=== PATIENT | female | born 1965 | race African-American/Black ===

== ENCOUNTER 2016-10-09 20:09 | Emergency (ER) | payer BC ==
[~2016-10-09] VITALS: Ht 162.6 cm; Wt 73.5 kg
[~2016-10-09 20:09] MED LIST: AMLO-147 PO; AMLO-218 PO; CIPR500T4 PO; IBUP-1542 PO; LISI-329 PO; METR500T PO; ONDA4TAB35 PO; ULT50 PO
[2016-10-09 20:10] VITALS: Ht 162.6 cm; Wt 73.5 kg
[2016-10-09] MEDS ORDERED: SOD CHLORIDE 0.9% 1,000 ML IV STA (20:53)
[2016-10-09] MEDS ORDERED: DICLOFENAC SODIUM 37.5 MG/ML VIAL IV STA (20:53)
[2016-10-09 21:17] LABS: ADD UMIC YES; URINE BILIRUBIN (Dip) NEGATIVE (NEGATIVE); URINE BLOOD (Dip) TRACE (NEGATIVE); URINE COLOR LT. YELLOW (YELLOW); URINE GLUCOSE (Dip) NEGATIVE (NEGATIVE); URINE KETONES (Dip) NEGATIVE (NEGATIVE); URINE LEUKOCYTE ESTERASE (Dip) NEGATIVE (NEGATIVE); URINE NITRITE (Dip) NEGATIVE (NEGATIVE); URINE TOTAL PROTEIN (Dip) TRACE (NEGATIVE); URINE UROBILINOGEN (Dip) 0.2 E.U./dL (0.1-1.0)
[2016-10-09 21:27] LABS: ALBUMIN 4.1 g/dl (3.3-4.9)
[2016-10-09 21:30] LABS: ALBUMIN/GLOBULIN RATIO 1.17; BILIRUBIN,INDIRECT 0.2 mg/dl (0-1.1); BILIRUBIN,TOTAL 0.2 mg/dl (0.2-1.3); CREATININE 0.94 mg/dl (0.44-1.00); TOTAL PROTEIN 7.6 g/dl (6.1-8.1)
[2016-10-09 21:31] LABS: BASOPHILS % 0.4 % (0.0-2.0); CALCIUM 8.9 mg/dl (8.4-10.2); EOSINOPHILS # 0.1 10^3/ul (0.0-0.5); EOSINOPHILS % 0.8 % (0.0-7.0); HEMOGLOBIN 11.4 g/dl (12.0-16.0); LYMPHOCYTES # 1.4 10^3/ul (0.8-2.9); LYMPHOCYTES % 18.8 % (15.0-51.0); MEAN CORPUSCULAR HEMOGLOBIN 27.6 pg (29.0-33.0); MEAN CORPUSCULAR HGB CONC 32.6 g/dl (32.0-37.0); MEAN CORPUSCULAR VOLUME 84.6 fl (82.0-101.0); MEAN PLATELET VOLUME 8.4 fl (7.4-10.4); MONOCYTE # 0.4 10^3/ul (0.3-0.9); MONOCYTES % 5.6 % (0.0-11.0); NEUTROPHIL # 5.6 10^3/ul (1.6-7.5); NEUTROPHILS % 74.4 % (39.0-77.0); PLATELET COUNT 300 10^3/UL (140-440); RED BLOOD COUNT 4.13 10^6/ul (4.20-5.40); RED CELL DISTRIBUTION WIDTH 16.5 % (11.5-14.5); UNCORRECTED WBC 7.6 10^3/ul (4.8-10.8); WHITE BLOOD COUNT 7.6 10^3/ul (4.8-10.8)
[2016-10-09 21:36] LABS: BACTERIA,URINE FEW; SQUAMOUS EPITHELIAL CELL,UR FEW
[2016-10-09 21:38] LABS: CONDITION 1; LH ANALYZER COMMENTS 1
--- NOTE | 2016-10-09 21:45 | RADRPT ---
PROCEDURE: CT Abdomen and Pelvis without contrast CLINICAL INDICATION: Left lower quadrant abdominal pain TECHNIQUE: Transaxial images were obtained through the abdomen and pelvis on a multi-slice scanner without the intravenous contrast administration. Sagittal and coronal re-formations were subsequent ly reconstructed. One or more of the following dose reduction techniques were used: - Automated exposure control. - Adjustment of the mA and/or kV according to patient size. - Use of iterative reconstruction technique. Radiation dose: CTDIvol = 10.86 mGy; DLP = 612.67 mGy-cm. COMPARISON: No prior studies are available for comparison. FINDINGS: Lung bases: The visualized lung bases appear unremarkable. Liver: The liver is borderline enlarged but no focal lesion is identified. Gallbladder: The wall is not thickened. No radiopaque stones are identified. Bile ducts: The intra and extrahepatic bile ducts are normal in caliber. Pancreas: Appears normal with no mass or inflammation evident. Spleen: Normal in size with no focal lesion. Adrenals: Normal with no mass identified. Kidneys, ureters and bladder: The kidneys are normal in size and there is no mass, pathological calc ification, or hydronephrosis evident. There is no perinephric stranding. The ureters are normal in c aliber and no ureteroliths are identified. The bladder appears unremarkable. Reproductive organs: The uterus is prominent, anteflexed, and is midline. A 2.2 cm subserosal fibroi d extends inferiorly off the left uterine fundus. No adnexal masses evident. Phleboliths are seen in the pelvis. Stomach and bowel: There are scattered diverticuli within the colon but there is no evidence of nori l obstruction or inflammation. There is a small focal area of dense substance seen within the ascen ding colon which is probably ingested material. The stomach appears unremarkable. Appendix: There are no findings to suggest appendicitis. Peritoneum: No free intraperitoneal fluid or air is identified. Aorta: There is mild atherosclerotic vascular calcification but no abdominal aortic aneurysm is evid ent. IVC: Unremarkable. Lymph nodes: Small shoddy retroperitoneal nodes are evident. Osseous structures: Very mild degenerative endplate changes are seen to the spine. IMPRESSION: 1. The liver is borderline enlarged with no focal lesion. 2. Scattered diverticuli are seen in the colon and there is abundant stool. There is no evidence o f bowel obstruction or inflammation. 3. No evidence of urinary outflow obstruction or ureterolithiasis. 4. Prominent anteflexed uterus. 2.2 cm subserosal fibroid extends inferiorly off the left uterine f undus. 5. Mild atherosclerotic vascular calcification. Physician Kristy Date Time Electronically viewed and signed by Luz Maria Goode Physician on 10/09/2016 21:45 RH/
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
[2016-10-09] MEDS ORDERED: IBUP800T25 PO (21:57)
[2016-10-09] MEDS ORDERED: POLY17PO6 PO (21:57)
[2016-10-09] MEDS ORDERED: DOCU-144 PO (21:57)
[2016-10-09 22:35] VITALS: BP 168/98; PULSE 76; RESP 18; TEMP 98.3
== END 2016-10-09 23:39 | disposition home or self-care (01) ==
LOC: E/R 20:09
DX: R10.32 Left lower quadrant pain (principal); R40.2252 Coma scale, best verbal response, oriented, at arrival to emergency department; K59.00 Constipation, unspecified; D25.9 Leiomyoma of uterus, unspecified; D64.9 Anemia, unspecified; F17.200 Nicotine dependence, unspecified, uncomplicated; R40.2362 Coma scale, best motor response, obeys commands, at arrival to emergency department; R40.2142 Coma scale, eyes open, spontaneous, at arrival to emergency department; I10 Essential (primary) hypertension; Z71.6 Tobacco abuse counseling
CPT/HCPCS: 36415; 74176; 80053; 81001; 83690; 85025; 96374; J7030; Z7502; Z7610; 81003

== ENCOUNTER 2017-08-07 22:26 | Emergency (ER) | payer BC ==
[~2017-08-07] VITALS: Ht 162.6 cm; Wt 72.0 kg
[~2017-08-07 22:26] MED LIST changes: +DOCU-144 PO; +IBUP800T25 PO; +POLY17PO6 PO; +TRAM50TA2 PO; -ULT50 PO
[2017-08-07 23:06] VITALS: Ht 162.6 cm; Wt 72.0 kg
[2017-08-07] MEDS ORDERED: ONDANSETRON 4 MG INJ IV STA (23:17)
[2017-08-07] MEDS ORDERED: morphine 4 MG/ML VIAL IV STA (23:17)
[2017-08-07] MEDS ORDERED: hydrALAzine 20 MG INJ IV ONE (23:30)
[2017-08-07 23:50] LABS: BASOPHILS % 0.3 % (0.0-2.0); EOSINOPHILS % 0.4 % (0.0-7.0); HEMATOCRIT 37.8 % (37.0-47.0); HEMOGLOBIN 12.2 g/dl (12.0-16.0); LYMPHOCYTES # 1.3 10^3/ul (0.8-2.9); MEAN CORPUSCULAR HEMOGLOBIN 27.4 pg (29.0-33.0); MEAN CORPUSCULAR HGB CONC 32.3 g/dl (32.0-37.0); MEAN CORPUSCULAR VOLUME 84.8 fl (82.0-101.0); MEAN PLATELET VOLUME 12.3 fl (7.4-10.4); MONOCYTE # 0.6 10^3/ul (0.3-0.9); NEUTROPHILS % 81.8 % (39.0-77.0); PLATELET COUNT 306 10^3/UL (140-415); RED BLOOD COUNT 4.46 10^6/ul (4.20-5.40); RED CELL DISTRIBUTION WIDTH 17.2 % (11.5-14.5)
[2017-08-07 23:59] LABS: INR 0.96; PROTIME 12.8 Sec (12.2-14.2)
[2017-08-08] LABS: PARTIAL THROMBOPLASTIN TIME 28.6 Sec (25.0-35.0)
[2017-08-08 00:23] LABS: CALCIUM 9.3 mg/dl (8.4-10.2); CREATININE 1.02 mg/dl (0.44-1.00); POTASSIUM 3.4 mmol/L (3.5-5.1)
[2017-08-08] MEDS ORDERED: LABETALOL HCL 20MG INJ IV ONE ×2 (00:30→02:30)
[2017-08-08 00:35] LABS: TROPONIN-I 0.019 ng/ml (0.00-0.12)
--- NOTE | 2017-08-08 00:40 | RADRPT ---
PROCEDURE: CT Brain without contrast. CLINICAL INDICATION: Headache. TECHNIQUE: A CT of the brain was performed utilizing axial sections from the skull base through th e vertex without contrast. Multiplanar re-formations were generated. Images were reviewed on a high- resolution PACS workstation. CTDIvol: 45.01 mGy. DLP: 720.23 mGy-cm. One or more of the following dose reduction techniques were used: - Automated exposure control. - Adjustment of the mA and/or kV according to patient size. - Use of iterative reconstruction technique. COMPARISON: 06/23/2015 FINDINGS: There is subarachnoid hemorrhage filling the basal cisterns and the Sylvian fissures, right more veronica n left. The lateral ventricles are mildly enlarged in comparison to the prior examination. There is no cerebral volume loss. No hydrocephalus is seen. There is no mass effect. There is no sub dural or epidural collection. Martin-white matter differentiation is preserved. There is patchy low at tenuation in the supratentorial white matter, a nonspecific finding which most likely represents the sequela of mild chronic microvascular ischemic disease. There is no significant mucosal disease in the paranasal sinuses. The visualized mastoid air cells are clear. The ossesous structures are unremarkable. The extracranial soft tissues are unremarkable. IMPRESSION: 1. Subarachnoid hemorrhage filling the basal cisterns and the Sylvian fissures, right more than lef t. This is most consistent with a aneurysm rupture. Further evaluation with CTA of the head is recom mended. 2. Mild hydrocephalus of the lateral ventricles, increased since 06/23/2015. Neurosurgical consulta tion is recommended. 3. Mild chronic microvascular ischemic changes. Critical Results were called to Dr. Villa at 12:30 a.m. on 08/08/2017. RPTAT: HTAR .Javan Marion MD, Date Time Electronically viewed and signed by .Javan Marion MD, on 08/08/2017 00:40 .R/
[2017-08-08] MEDS ORDERED: IOHEXOL 300MG/ML 150 ML BTL ONE (00:55)
[2017-08-08] MEDS ORDERED: SOD CHLORIDE 0.9% 100 ML ONE (00:55)
--- NOTE | 2017-08-08 01:04 | RADRPT ---
PROCEDURE: XR Chest. CLINICAL INDICATION: Cough TECHNIQUE: Single frontal view of the chest was obtained COMPARISON: 06/23/2015 FINDINGS: The heart and mediastinum are within normal limits. There is minimal prominence of the lung interstitium likely minimal chronic changes. ECG leads and t ubing projected over the chest. There is no pleural effusion or pneumothorax. Osteoarthrosis at shoulders IMPRESSION: No acute disease. RPTAT: HJES .Willis Bro MD, MD Date Time Electronically viewed and signed by .Willis Bro MD, MD on 08/08/2017 01:04 .S/
[2017-08-08] MEDS ORDERED: morphine 4 MG/ML VIAL IV STA ×2 (01:18→02:30)
--- NOTE | 2017-08-08 01:58 | RADRPT ---
PROCEDURE: CT angiogram of the head and neck with contrast. CLINICAL INDICATION: Subarachnoid hemorrhage, headache. TECHNIQUE: CT angiogram of the head and neck was performed on a multi-detector high-resolution CT scanner. Contiguous axial images were obtained after the dynamic injection of 120 cc Omnipaque 300 intravenous contrast. Coronal and sagittal as well as maximal intensity projection reformations we re obtained. 3-D post processing was also performed. Images were reviewed on a PACS workstation. One or more of the following dose reduction techniques were used: - Automated exposure control. - Adjustment of the mA and/or kV according to patient size. - Use of iterative reconstruction technique. Exam CTD/vol = 17.02 mGy. Total exam DLP = 675.15 mGy-cm. COMPARISON: None. FINDINGS: Neck: The visualized aortic arch and proximal great vessels are within normal limits. Bilateral com mon carotid arteries are normal course and caliber. Bilateral carotid bulbs and bifurcations are wi thin normal limits. Bilateral internal and external carotid arteries are of normal course and calib er. Bilateral vertebral arteries are of normal course and caliber. There is no significant stenosi s or occlusion. There is no evidence of aneurysm or dissection. Brain: There is an aneurysm projecting posteriorly and inferiorly off of the right supraclinoid dis sonny internal carotid artery at the expected location of the posterior communicating artery measuring approximately 3.9 x 3.2 mm and 6.0 mm in length with a neck measuring approximately 1.2 mm. Bilate ral distal internal carotid arteries are otherwise normal course and caliber. Bilateral anterior an d middle cerebral arteries are within normal limits. Bilateral distal vertebral arteries are of nor mal course and caliber. The basilar artery is intact. Bilateral posterior cerebral arteries are wi thin normal limits. There is no significant stenosis or occlusion. The venous structures are unrem arkable. IMPRESSION: Right PCOM aneurysm measuring approximately 3.9 x 3.2 x 6.0 mm No hemodynamically significant carotid stenosis. Direct measurements of vessel diameter was made in reference to measurements of the distal internal carotid artery diameter. A call report was made to Dr. Villa at 01:55 a.m. .Hussein Schuster MDMD Date Time Electronically viewed and signed by .Hussein Schuster MD, on 08/08/2017 01:58 .T/
[2017-08-08 02:55] VITALS: BP 198/96; PULSE 68; RESP 16; TEMP 98.3
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
== END 2017-08-08 02:56 | disposition short-term general hospital (02) ==
LOC: E/R 22:26
DX: I16.9 Hypertensive crisis, unspecified (principal); I10 Essential (primary) hypertension; I60.9 Nontraumatic subarachnoid hemorrhage, unspecified; F17.210 Nicotine dependence, cigarettes, uncomplicated; R40.2142 Coma scale, eyes open, spontaneous, at arrival to emergency department; R40.2252 Coma scale, best verbal response, oriented, at arrival to emergency department; R40.2362 Coma scale, best motor response, obeys commands, at arrival to emergency department
CPT/HCPCS: 36415; 70450; 70496; 70498; 71010; 80048; 84484; 85025; 85610; 85730; 93005; 96374; 96375; 96376; J0360; J2270; J2405; Q9967; Z7502; Z7610

== ENCOUNTER 2017-11-24 22:24 | Emergency (ER) | END 2017-11-25 00:56 | disposition left against medical advice (07) ==

== ENCOUNTER 2018-02-25 22:12 | Inpatient (IN) | END 2018-02-26 12:35 | disposition left against medical advice (07) | DRG 103 ==